=== PATIENT | male | born 1970 | race Caucasian/White ===

== ENCOUNTER → 2023-08-11 15:59 | Outpatient (REF) | payer BC, SELFPAY | LOC: RAD 15:59 | PROVIDERS: ATTENDING PHYSICIAN Nurse Practitioner Family | DX: M25.551 Pain in right hip (principal); M25.552 Pain in left hip | CPT/HCPCS: 72100; 73522 ==

== ENCOUNTER → 2023-12-10 16:06 | Outpatient (REF) | payer BC, SELFPAY | LOC: REG 16:06 | PROVIDERS: ATTENDING PHYSICIAN Specialist; FAMILY PHYSICIAN Nurse Practitioner Family | DX: Z01.818 Encounter for other preprocedural examination (principal) | CPT/HCPCS: 36415; 84132 ==